=== PATIENT | male | born 1995 | race Two or more races ===

== ENCOUNTER 2022-01-21 21:19 | Emergency (ER) | payer OTHER ==
[~2022-01-21] VITALS: Ht 170.2 cm; Wt 56.7 kg
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
[2022-01-21] MEDS ORDERED: IBUPROFEN 600 MG TABLET PO ONE (23:00)
[2022-01-21] MEDS ORDERED: ACETAMINOPHEN ES 500 MG TABLET PO ONE (23:00)
[2022-01-21] MEDS ORDERED: ACETAMINOPHEN ES 500 MG TABLET ONE (23:00)
[2022-01-21] MEDS ORDERED: IBUPROFEN 600 MG TABLET ONE (23:01)
--- NOTE | 2022-01-22 00:21 | NUR ---
AUTHORIZER AT PT'S BEDSIDE
[2022-01-22] MEDS ORDERED: IBUP-1957 PO (02:03)
--- NOTE | 2022-01-22 02:23 | NUR ---
Patient discharged to home in stable condition. Written and verbal after care instructions given. Patient verbalizes understanding of instruction. Pt ambulatory with a steady gait
[2022-01-22 02:24] VITALS: BP 123/78
== END 2022-01-22 02:24 | disposition home or self-care (01) ==
LOC: ER 21:38
DX: S40.011A Contusion of right shoulder, initial encounter (principal); S63.502A Unspecified sprain of left wrist, initial encounter; I10 Essential (primary) hypertension; E11.9 Type 2 diabetes mellitus without complications; Z60.2 Problems related to living alone; V49.9XXA Car occupant (driver) (passenger) injured in unspecified traffic accident, initial encounter; W22.11XA Striking against or struck by driver side automobile airbag, initial encounter; Y93.89 Activity, other specified; Y92.89 Other specified places as the place of occurrence of the external cause; Y99.8 Other external cause status
CPT/HCPCS: 73110